=== PATIENT | female | born 1990 | race African-American/Black ===

== ENCOUNTER 2016-12-18 20:16 | Emergency (ER) | payer OTHER ==
[~2016-12-18] VITALS: Ht 157.5 cm; Wt 50.0 kg
[2016-12-18 23:48] LABS: HCG SCREEN NEGATIVE
[2016-12-19] MEDS ORDERED: IBUPROFEN 400MG TABLET PO ONE (01:00)
[2016-12-19 02:21] VITALS: BP 122/70
== END 2016-12-19 02:29 | disposition home or self-care (01) ==
LOC: ER 22:18
DX: S09.90XA Unspecified injury of head, initial encounter (principal); M54.2 Cervicalgia; M25.512 Pain in left shoulder; F17.200 Nicotine dependence, unspecified, uncomplicated; V04.90XA Pedestrian on foot injured in collision with heavy transport vehicle or bus, unspecified whether traffic or nontraffic accident, initial encounter; Y93.89 Activity, other specified; Y92.89 Other specified places as the place of occurrence of the external cause; Y99.8 Other external cause status; Z88.6 Allergy status to analgesic agent
CPT/HCPCS: 70450; 71010; 72125; 73030; 84703; 99285; Z7610

== ENCOUNTER 2017-06-24 10:49 | Emergency (ER) | payer OTHER ==
[~2017-06-24] VITALS: Ht 287 cm; Wt 50.0 kg
[2017-06-24 12:17] LABS: CLARITY URINE CLEAR (CLEAR); COLOR URINE YELLOW (YELLOW); KETONES URINE NEGATIVE (NEGATIVE); LEUKOCYTE ESTERASE URINE NEGATIVE (NEGATIVE); NITRITE URINE NEGATIVE (NEGATIVE); OCCULT BLOOD URINE NEGATIVE (NEGATIVE); PH URINE >=9.0 (4.5-8.0); PROTEIN URINE NEGATIVE (NEGATIVE); UROBILINOGEN URINE 0.2 E.U./dL (0.2-1.0)
[2017-06-24] MEDS ORDERED: SODIUM CHLORIDE 0.9% 1,000 ML IV ONE (13:31)
[2017-06-24] MEDS ORDERED: ONDANSETRON HCL 4MG/2ML VIAL IV ONE (13:45)
[2017-06-24] MEDS ORDERED: ACETAMINOPHEN 325MG TABLET PO PRN (13:45)
[2017-06-24 15:15] LABS: BASOPHILS % 0.8 % (0.0-2.0); EOSINOPHILS % 1.7 % (0.0-5.0); HEMATOCRIT. 35.6 % (36.0-48.0); HEMOGLOBIN. 11.9 g/dL (12.0-16.0); LYMPHOCYTES % 18.4 % (20.0-50.0); MEAN CORPUSCULAR HEMOGLOBIN 27.8 pg (28.0-32.0); MEAN CORPUSCULAR VOLUME 83.4 fL (81.0-99.0); MEAN PLATELET VOLUME 7.9 fl (7.4-10.4); MONOCYTES % 7.4 % (2.0-8.0); NEUTROPHILS % 71.7 % (40.0-76.0); PLATELET 286 x1000/uL (130-400); RED BLOOD CELL COUNT 4.26 mill/uL (4.2-5.4); RED CELL DISTRIBUTION WIDTH 13.7 % (11.6-14.6)
[2017-06-24 15:19] LABS: CHLORIDE 106 mEq/L (98-107)
[2017-06-24 15:38] LABS: B-HCG QUANTITATIVE 36150 mIU/mL (<3)
[2017-06-24 17:12] VITALS: BP 102/55
== END 2017-06-24 17:28 | disposition home or self-care (01) ==
LOC: ER 10:49
DX: O03.9 Complete or unspecified spontaneous abortion without complication (principal); O26.892 Other specified pregnancy related conditions, second trimester; G43.909 Migraine, unspecified, not intractable, without status migrainosus; Z3A.17 17 weeks gestation of pregnancy; Z87.891 Personal history of nicotine dependence; Z88.6 Allergy status to analgesic agent
CPT/HCPCS: 36415; 76805; 80053; 81003; 81025; 84702; 85025; 86850; 86900; 86901; 96360; 99285; J7030; Z7610

== ENCOUNTER 2017-07-26 10:28 | Emergency (ER) | payer OTHER ==
[~2017-07-26] VITALS: Ht 157.5 cm; Wt 55.0 kg
[2017-07-26] MEDS ORDERED: SODIUM CHLORIDE 0.9% 1,000 ML IV ONE (10:45)
[2017-07-26] MEDS ORDERED: ACETAMINOPHEN 325MG TABLET PO ONE (11:00)
[2017-07-26 11:07] LABS: BASOPHILS % 0.8 % (0.0-2.0); EOSINOPHILS % 1.5 % (0.0-5.0); HEMATOCRIT. 34.3 % (36.0-48.0); HEMOGLOBIN. 11.6 g/dL (12.0-16.0); LYMPHOCYTES % 17.5 % (20.0-50.0); MEAN CORPUSCULAR HEMOGLOBIN 28.4 pg (28.0-32.0); MEAN CORPUSCULAR VOLUME 83.7 fL (81.0-99.0); MEAN PLATELET VOLUME 7.8 fl (7.4-10.4); MONOCYTES % 6.9 % (2.0-8.0); NEUTROPHILS % 73.3 % (40.0-76.0); PLATELET 271 x1000/uL (130-400); RED BLOOD CELL COUNT 4.09 mill/uL (4.2-5.4); RED CELL DISTRIBUTION WIDTH 14.1 % (11.6-14.6)
[2017-07-26 11:13] LABS: CHLORIDE 106 mEq/L (98-107)
[2017-07-26 11:32] LABS: PARTIAL THROMBOPLASTIN TIME 24.5 sec (23.4-31.0); PROTHROMBIN TIME 10.4 sec (9.4-11.6)
[2017-07-26 11:36] LABS: B-HCG QUANTITATIVE 14285 mIU/mL (<3)
[2017-07-26] MEDS ORDERED: ONDANSETRON HCL 4MG/2ML VIAL IV ONE (15:45)
[2017-07-26] MEDS ORDERED: MORPHINE SULFATE 4 MG/ML CPJ (NOT FOR IM USE) IV ONE (15:45)
[2017-07-26 16:37] VITALS: BP 104/60
== END 2017-07-26 16:44 | disposition short-term general hospital (02) ==
LOC: ER 11:29
DX: O26.892 Other specified pregnancy related conditions, second trimester (principal); R51 Headache; R10.9 Unspecified abdominal pain; M54.2 Cervicalgia; D72.829 Elevated white blood cell count, unspecified; Z3A.19 19 weeks gestation of pregnancy; V43.52XA Car driver injured in collision with other type car in traffic accident, initial encounter; Y93.89 Activity, other specified; Y92.410 Unspecified street and highway as the place of occurrence of the external cause
CPT/HCPCS: 36415; 73030; 76705; 76805; 80053; 84702; 85025; 85610; 85730; 86850; 86900; 86901; 96361; 96374; 96375; 99291; J2270; J2405; J7030; Z7610

== ENCOUNTER 2018-11-12 13:32 | Emergency (ER) | payer OTHER ==
[~2018-11-12] VITALS: Ht 162.6 cm; Wt 62.0 kg
[2018-11-12] MEDS ORDERED: SODIUM CHLORIDE 0.9% 1,000 ML IV ONE (14:25)
[2018-11-12 14:58] LABS: CHLORIDE 107 mEq/L (98-107)
[2018-11-12 14:59] LABS: INR 1.2; PARTIAL THROMBOPLASTIN TIME 28.5 sec (23.4-31.0); PROTHROMBIN TIME 12.7 sec (9.6-11.0)
[2018-11-12 15:28] LABS: HCG SCREEN NEGATIVE
[2018-11-12] MEDS ORDERED: ACETAMINOPHEN 325MG TABLET PO ONE (16:15)
[2018-11-12] MEDS ORDERED: KETOROLAC 15MG/ML VIAL IV ONE (16:15)
[2018-11-12] MEDS ORDERED: DIATR MEGLU/DIATRIZOATE SOLN 30ML ONE (16:21)
[2018-11-12 16:32] LABS: CLARITY URINE CLEAR (CLEAR); COLOR URINE DARK YELLOW (YELLOW); KETONES URINE 1+ (NEGATIVE); LEUKOCYTE ESTERASE URINE NEGATIVE (NEGATIVE); NITRITE URINE NEGATIVE (NEGATIVE); OCCULT BLOOD URINE 2+ (NEGATIVE); PH URINE 5.5 (4.5-8.0); PROTEIN URINE TRACE (NEGATIVE); SPECIFIC GRAVITY URINE 1.029 (1.005-1.030)
[2018-11-12 16:56] LABS: BASOPHILS % 0.3 % (0.0-2.0); EOSINOPHILS % 0.6 % (0.0-5.0); HEMATOCRIT. 38.9 % (36.0-48.0); HEMOGLOBIN. 12.7 g/dL (12.0-16.0); MEAN CORPUSCULAR HEMOGLOBIN 27.3 pg (28.0-32.0); MEAN CORPUSCULAR VOLUME 83.7 fL (81.0-99.0); MONOCYTES % 6.9 % (2.0-8.0); NEUTROPHILS % 79.2 % (40.0-76.0); PLATELET 281 x1000/uL (130-400); RED BLOOD CELL COUNT 4.65 mill/uL (4.2-5.4); RED CELL DISTRIBUTION WIDTH 14.4 % (11.6-14.6)
[2018-11-12] MEDS ORDERED: IOHEXOL-300 100 ML BOTTLE ONE (19:38)
[2018-11-12] MEDS ORDERED: DICYCLOMINE HCL 10MG/ML 2ML AMP IM NR (20:15)
[2018-11-12] MEDS ORDERED: ACETAMINOPHEN 325MG TABLET PO NR (20:15)
[2018-11-12] MEDS ORDERED: KETOROLAC 15MG/ML VIAL IV NR (20:15)
[2018-11-12 21:27] VITALS: BP 123/70
== END 2018-11-12 21:43 | disposition home or self-care (01) ==
LOC: ER 13:32
DX: R10.9 Unspecified abdominal pain (principal); M79.10 Myalgia, unspecified site; D72.829 Elevated white blood cell count, unspecified; S82.491D Other fracture of shaft of right fibula, subsequent encounter for closed fracture with routine healing; X58.XXXD Exposure to other specified factors, subsequent encounter; Z88.6 Allergy status to analgesic agent
CPT/HCPCS: 36415; 71045; 73590; 74177; 80053; 81003; 83690; 84703; 85025; 85610; 85730; 86850; 86900; 86901; 96372; 96374; 96376; 99284; J0500; J1885; J7030; Q9967; Q9963

== ENCOUNTER 2018-11-30 20:08 | Emergency (ER) | payer OTHER ==
[~2018-11-30] VITALS: Ht 162.6 cm; Wt 50.0 kg
[2018-11-30] MEDS ORDERED: TRAMADOL 50MG TABLET PO ONE (20:45)
[2018-11-30 21:50] VITALS: BP 118/75
== END 2018-11-30 22:04 | disposition home or self-care (01) ==
LOC: ER 20:08
DX: S82.401D Unspecified fracture of shaft of right fibula, subsequent encounter for closed fracture with routine healing (principal); S82.301D Unspecified fracture of lower end of right tibia, subsequent encounter for closed fracture with routine healing; V89.2XXD Person injured in unspecified motor-vehicle accident, traffic, subsequent encounter; Z88.6 Allergy status to analgesic agent
CPT/HCPCS: 73590; 73610; 99283

== ENCOUNTER 2020-11-13 07:52 | Emergency (ER) | payer OTHER ==
[~2020-11-13] VITALS: Ht 160 cm; Wt 48.0 kg
[2020-11-13] MEDS ORDERED: KETOROLAC 60MG/2ML VIAL IM ONE (08:00)
[2020-11-13] MEDS ORDERED: T3 PO (09:42)
[2020-11-13] MEDS ORDERED: IBUP-2028 PO (09:42)
[2020-11-13] MEDS ORDERED: TRAMADOL 50MG TABLET PO ONE (09:45)
[2020-11-13 10:10] VITALS: BP 125/80
== END 2020-11-13 10:14 | disposition home or self-care (01) ==
LOC: ER 07:52
DX: M79.18 Myalgia, other site (principal); V49.50XA Passenger injured in collision with unspecified motor vehicles in traffic accident, initial encounter; Y93.89 Activity, other specified; Y92.410 Unspecified street and highway as the place of occurrence of the external cause
CPT/HCPCS: 71045; 72170; 73600; 73620; 81025; 96372; 99284; J1885; Z7610